=== PATIENT | male | born 1945 | race Two or more races ===

== ENCOUNTER 2024-06-02 08:21 | Emergency (ER) | payer OTHER ==
[~2024-06-02] VITALS: Ht 177.8 cm; Wt 98.0 kg
[2024-06-02] MEDS ORDERED: KEPPRA500 MG PO (08:46)
[2024-06-02] MEDS ORDERED: LEVOTHYROXINE25 MCG PO (08:47)
[2024-06-02] MEDS ORDERED: CHLORTHALIDONE25 MG PO (08:47)
[2024-06-02] MEDS ORDERED: COZAAR100 MG PO (08:47)
[2024-06-02] MEDS ORDERED: ATORVASTATIN CA10 MG PO (08:47)
[2024-06-02] MEDS ORDERED: ACETAMINOPHEN 500 MG GEL..CAP PO ONE (09:30)
== END 2024-06-02 10:23 | disposition home or self-care (01) ==
LOC: ER 08:22
DX: S80.02XA Contusion of left knee, initial encounter (principal); W01.0XXA Fall on same level from slipping, tripping and stumbling without subsequent striking against object, initial encounter; Y93.89 Activity, other specified; Y92.013 Bedroom of single-family (private) house as the place of occurrence of the external cause; M19.90 Unspecified osteoarthritis, unspecified site; G40.89 Other seizures; I10 Essential (primary) hypertension

== ENCOUNTER 2024-06-08 05:09 | Day surgery (SDC) | payer OTHER ==
[2024-06-01 09:33] LABS: URINE APPEARANCE Clear; URINE BILIRRUBIN Negative (NEGATIVE); URINE BLOOD Negative; URINE COLOR Yellow; URINE GLUCOSE Negative (NEGATIVE); URINE KETONE Negative (NEGATIVE); URINE LEUKOCYTE Small; URINE NITRATE Positive; URINE PROTEIN Negative (NEGATIVE); URINE UROBILINOGEN 0.2 E.U./dl
[2024-06-01 09:38] LABS: URINE EPITHELIAL CELLS 11.9 uL (0.0-38.8); URINE RBC 5.1 uL (0.0-20.8); URINE WBC 234.3 uL (0.0-23.2)
[2024-06-01 09:45] LABS: HEMATOCRIT 42.9 % (39.0-48.0); HEMOGLOBIN 14.8 g/dL (13-16.00); MEAN CELL VOLUME 90.5 fL (80.0-100.00); MEAN CORPUSCULAR HEMOGLOBIN 31.3 pg (27.00-32.0); MEAN CORPUSCULAR HGB CONC 34.6 g/dl (32.0-36.0); PLATELET COUNT 273 K/uL (150-450); RED BLOOD COUNT 4.74 M/uL (4.00-6.00); RED CELL DISTRIBUTION WIDTH 14.3 % (11.5-14.5)
[2024-06-01 10:00] LABS: INR 0.94; PARTIAL THROMBOPLASTIN TIME 28.7 SECONDS (22.0-34.0); PROTHROMBIN TIME 10.3 SECONDS (9.0-11.5)
[2024-06-01 10:11] LABS: URINE BACTERIA > 9821.5 uL (0.0-1933)
[2024-06-01 10:47] LABS: ALBUMIN 3.8 gm/dL (3.4-5.0); BILIRUBIN TOTAL 0.38 mg/dL (0.3-1.2); CALCIUM 9.2 mg/dL (8.5-10.1); CREATININE SERUM 0.93 mg/dL (0.70-1.30); GFR 78.38; GLOBULINA 3.3 G/DL (2.4-3.5); POTASSIUM 3.86 mEq/L (3.5-5.1); TOTAL PROTEIN 7.1 gm/dL (6.4-8.2)
[~2024-06-08 05:09] MED LIST: ATORVASTATIN CA10 MG PO; CHLORTHALIDONE25 MG PO; COZAAR100 MG PO; KEPPRA500 MG PO; LEVOTHYROXINE25 MCG PO
[2024-06-08] MEDS ORDERED: CEFAZOLIN SODIUM 1,000 MG VIAL ONE (06:58)
[2024-06-08] MEDS ORDERED: MORPHINE SULFATE 4 MG/ML VIAL IV ONE ×2 (09:35→10:05)
== END 2024-06-08 11:30 | disposition home or self-care (01) ==
LOC: CIR.AMB 05:09
PROVIDERS: ATTEND Surgery
DX: K40.30 Unilateral inguinal hernia, with obstruction, without gangrene, not specified as recurrent (principal)
CPT/HCPCS: 49507; C1781